=== PATIENT | male | born 1970 | race Two or more races ===

== ENCOUNTER 2021-03-06 06:25 | Outpatient (CLI) | payer OTHER ==
[~2021-03-06 06:25] MED LIST: CLARITIN10 MG PO; GILTUSS LIQUID237 M1 PO; ZITHROMAX Z PACK PO
== END 2021-03-06 06:26 | disposition home or self-care (01) ==
LOC: LAB 06:25
PROVIDERS: ATTEND Obstetrics & Gynecology
DX: Z20.818 Contact with and (suspected) exposure to other bacterial communicable diseases (principal); Z20.828 Contact with and (suspected) exposure to other viral communicable diseases